=== PATIENT | male | born 1980 | race Caucasian/White ===

== ENCOUNTER 2016-09-19 08:57 | Emergency (ER) | payer OTHER ==
[~2016-09-19] VITALS: Ht 165.1 cm; Wt 91.0 kg
[~2016-09-19 08:57] MED LIST: AUGMENTIN875 MG PO; FLEXERIL10 MG PO; IBUPROFEN400 MG PO; NAPROSYN500 MG PO; PERCOCET 5/31 TABLET PO; TYLENOL WITH C1 EACH PO; ULTRAM50 MG PO
[2016-09-19] MEDS ORDERED: NAPROXEN500 MG PO (09:47)
[2016-09-19 10:02] VITALS: BP 128/67
== END 2016-09-19 10:04 | disposition home or self-care (01) ==
LOC: EME 08:57
DX: S82.63XA Displaced fracture of lateral malleolus of unspecified fibula, initial encounter for closed fracture (principal); S93.401A Sprain of unspecified ligament of right ankle, initial encounter; X50.9XXA Other and unspecified overexertion or strenuous movements or postures, initial encounter
CPT/HCPCS: 73610; 99281; 99283